=== PATIENT | female | born 1965 | race Caucasian/White ===

== ENCOUNTER → 2017-01-31 | Outpatient (CLI) | payer OTHER ==
--- NOTE | 2017-01-31 12:53 | DI ---
XR HAND MIN 3VW,01/31/2017 9:12 AM: Clinical History: Pain in the right hand Previous Exam: None at this facility. Findings: 3 views of the right hand are obtained, and demonstrate anatomic alignment without fractures. Surroun ding soft tissues are unremarkable. Impression: No fracture.
== END ==
LOC: ORTHO 09:22
PROVIDERS: ATTEND Orthopaedic Surgery
DX: S67.194D Crushing injury of right ring finger, subsequent encounter (principal)
CPT/HCPCS: 73130

== ENCOUNTER → 2017-02-07 | Outpatient (CLI) | payer OTHER ==
--- NOTE | 2017-02-08 06:32 | DI ---
XR HAND MIN 3VW,02/07/2017 3:02 PM: Clinical History: Injury of the right ring finger Previous Exam: January 31, 2017 Findings: 3 views of the right hand are obtained, and demonstrate anatomic alignment without fractures. The rosi rounding soft tissues are unremarkable. Impression: Normal right hand.
== END ==
LOC: ORTHO 15:10
PROVIDERS: ATTEND Orthopaedic Surgery
DX: S67.194D Crushing injury of right ring finger, subsequent encounter (principal)
CPT/HCPCS: 73130